=== PATIENT | female | born 1985 | race Two or more races ===

== ENCOUNTER 2016-08-04 11:45 | Emergency (ER) | payer SELFPAY ==
[~2016-08-04] VITALS: Ht 162.6 cm; Wt 81.6 kg
[2016-08-04] MEDS ORDERED: SODIUM CHLORIDE 0.9% 1,000 ML IV ONE (12:14)
[2016-08-04] MEDS ORDERED: SODIUM CHLORIDE 0.9% 250 ML IV ONE (12:14)
[2016-08-04] MEDS ORDERED: NEOMYCIN-BACITRACIN-POLYM UNITDOSE PKG TOP OINT TOP ONE (12:15)
[2016-08-04] MEDS ORDERED: ONDANSETRON HCL 4 MG/2 ML VIAL IV ONE (12:15)
[2016-08-04] MEDS ORDERED: HYDROmorphone HCL 2 MG/ML VL IV ONE (12:15)
[2016-08-04] MEDS ORDERED: cefTRIAXone 1GM/50ML D5W 50 ML IV ONE (12:15)
[2016-08-04] MEDS ORDERED: SILVER SULFADIAZINE 1 % TOPICAL CREAM 50GM TOP ONE (12:15)
[2016-08-04 12:45] LABS: Basophils # (auto) 0.1 uL; Basophils % (auto) 0.4 % (0.0-2.0); Eosinophils # (auto) 0.3 uL; Eosinophils % (auto) 2.1 % (0.0-7.0); Hematocrit 42.4 % (36.0-46.0); Hemoglobin 14.4 g/dL (12.2-16.2); Lymphocytes # (auto) 4.5 uL; Lymphocytes % (auto) 33.9 % (10.0-50.0); Mean Corpuscular Hemoglobin 30.6 pg (28.0-32.0); Mean Corpuscular Hgb Conc. 33.9 g/dL (32.0-36.0); Mean Corpuscular Volume 90.2 fL (80.0-100.0); Mean Platelet Volume 8.5 fL (7.4-10.4); Monocytes # (auto) 0.9 uL; Monocytes % (auto) 6.9 % (0.0-12.0); Neutrophils # (auto) 7.5 uL; Neutrophils % (auto) 56.7 % (37.0-80.0); Platelet Count (auto) 417 10^3/uL (140-450); Red Cell Distribution Width 13.1 % (11.6-16.0); White Blood Cell 13.2 10^3/uL (4.4-10.8)
[2016-08-04] MEDS ORDERED: TETANUS-DIPTH-ACEL PERTUSSIS 0.5ML SYRG IM ONE (13:00)
[2016-08-04 13:05] LABS: Albumin 4.1 g/dL (3.4-5.0); Anion Gap 13 (5-15); Aspartate Aminotransferase 105 U/L (15-37); BUN/Creatinine Ratio 10.9; Blood Urea Nitrogen 10 mg/dL (7-18); Calcium 8.8 mg/dL (8.5-10.1); Carbon Dioxide 20 mmol/L (21-32); Chloride 107 mmol/L (98-107); GFR African American 93 mL/min; GFR Non-African American 77 mL/min; Glucose 96 mg/dL (74-106); Potassium 3.2 mmol/L (3.5-5.1); Sodium 140 mmol/L (136-145)
[2016-08-04 13:09] LABS: Alkaline Phosphatase 83 U/L (45-117); Total Protein 8.1 g/dL (6.4-8.2)
[2016-08-04 13:53] VITALS: BP 145/84
== END 2016-08-04 15:05 | disposition home or self-care (01) ==
LOC: ER 11:49
DX: T23.202A Burn of second degree of left hand, unspecified site, initial encounter (principal); T23.201A Burn of second degree of right hand, unspecified site, initial encounter; T20.20XA Burn of second degree of head, face, and neck, unspecified site, initial encounter; X08.8XXA Exposure to other specified smoke, fire and flames, initial encounter; Y93.89 Activity, other specified; Y92.098 Other place in other non-institutional residence as the place of occurrence of the external cause; Y99.8 Other external cause status
CPT/HCPCS: 16000; 36415; 71010; 80053; 84484; 85025; 90471; 90715; 96365; 96375; 99285; J0696; J1170; J2405; J7030

== ENCOUNTER 2017-02-07 20:49 | Emergency (ER) | payer SELFPAY ==
[~2017-02-07] VITALS: Ht 157.5 cm; Wt 81.6 kg
[2017-02-07 20:54] VITALS: BP 157/93
== END 2017-02-07 23:00 | disposition left against medical advice (07) ==
LOC: ER 20:49
DX: R07.89 Other chest pain (principal); R00.0 Tachycardia, unspecified; Z53.21 Procedure and treatment not carried out due to patient leaving prior to being seen by health care provider
CPT/HCPCS: 71010; 93005

== ENCOUNTER 2018-04-19 17:40 | Emergency (ER) | payer MEDICAID, OTHER ==
[~2018-04-19] VITALS: Ht 154.9 cm; Wt 86.2 kg
[2018-04-19 18:04] VITALS: BP 145/85
== END 2018-04-19 22:30 | disposition home or self-care (01) ==
LOC: ER 17:43
DX: S61.211A Laceration without foreign body of left index finger without damage to nail, initial encounter (principal); Z88.5 Allergy status to narcotic agent; Z88.8 Allergy status to other drugs, medicaments and biological substances; W25.XXXA Contact with sharp glass, initial encounter; Y93.89 Activity, other specified; Y92.89 Other specified places as the place of occurrence of the external cause; Y99.8 Other external cause status
CPT/HCPCS: 12001; 73120